=== PATIENT | female | born 1995 | race Caucasian/White ===

== ENCOUNTER → 2023-08-14 | Outpatient (CLI) | payer BC ==
[2023-08-14 15:03] LABS: Basophils # (A) 0.1 k/uL (0-0.2); Basophils % (A) 1 %; Eosinophils # (A) 0.2 k/uL (0-0.7); Eosinophils % (A) 3 %; HCT 37.9 % (34.0-46.0); HGB 11.1 gm/dL (11.4-16.0); Hypochromasia Marked; Lymphocytes # (A) 2.5 k/uL (1.0-4.8); Lymphocytes % (A) 28 %; MCH 24.1 pg (25.0-35.0); MCHC 29.3 g/dL (31.0-37.0); MCV 82.2 fL (80.0-100.0); Mean Platelet Volume 7.9; Monocytes # (A) 0.6 k/uL (0-1.0); Monocytes % (A) 7 %; Neutrophils # (A) 5.2 k/uL (1.3-7.7); Neutrophils % (A) 60 %; Platelet Count 353 k/uL (150-450); RBC 4.61 m/uL (3.80-5.40); RDW 15.9 % (11.5-15.5); WBC 8.7 k/uL (3.8-10.6)
[2023-08-14 21:17] LABS: % Iron Saturation 3.06 (12.00-45.00); ALT 15 U/L (8-44); AST 17 U/L (13-35); Albumin/Globulin Ratio 1.43 Ratio (1.60-3.17); Alkaline Phosphatase 79 U/L (41-126); Blood Urea Nitrogen 9.8 mg/dL (9.0-27.0); Calcium 9.3 mg/dL (8.7-10.3); Carbon Dioxide 19.1 mmol/L (21.6-31.8); Chloride 107 mmol/L (96-109); Chol/HDL Ratio 2.21 Ratio; Ferritin 5.4 ng/mL (10.0-291.0); Globulin 2.8 g/dL (1.6-3.3); Glucose 93 mg/dL (70-110); Iron 15 UG/DL (50-170); LDL Cholesterol,Calculated 49.7 mg/dL (0.0-131.0); Potassium 4.4 mmol/L (3.5-5.5); Sodium 139 mmol/L (135-145); Total Bilirubin <0.2 mg/dL (0.3-1.2); Total Iron Binding Capacity 490 UG/DL (228-460); Total Protein 6.8 g/dL (6.2-8.2)
[2023-08-16 05:47] LABS: HIV 2 AB Non-Reactive (Non-Reactive); HIV AB P24 Non-Reactive (Non-Reactive); HIV P24 AG Non-Reactive (Non-Reactive)
== END | disposition home or self-care (01) ==
LOC: LABWHC1 10:42
PROVIDERS: ATTEND Physician Assistant
DX: Z00.01 Encounter for general adult medical examination with abnormal findings (principal); Z13.1 Encounter for screening for diabetes mellitus; Z13.220 Encounter for screening for lipoid disorders; Z11.3 Encounter for screening for infections with a predominantly sexual mode of transmission; D50.9 Iron deficiency anemia, unspecified; R20.3 Hyperesthesia; R68.89 Other general symptoms and signs; R63.5 Abnormal weight gain; Z83.49 Family history of other endocrine, nutritional and metabolic diseases
CPT/HCPCS: 36415; 80053; 80061; 82728; 83036; 83540; 83550; 84443; 85025; 86780; 87390